=== PATIENT | female | born 1945 | race Caucasian/White ===

== ENCOUNTER 2018-09-27 10:38 | Inpatient (IN) | payer MEDICARE ==
[2018-09-27] MEDS ORDERED: ASPIRIN 81 MG PO STA (11:30)
[2018-09-27] MEDS ORDERED: NITROGLYCERIN OINT 1 INCH/GM PACKET TOPICAL STA (11:30)
[2018-09-27] MEDS ORDERED: LABETALOL SYRINGE 5 MG/ML IVP STA (11:31)
[2018-09-27 11:55] LABS: Basophils % (A) 1 %; Eosinophils # (A) 0.1 k/uL (0-0.7); Eosinophils % (A) 1 %; HCT 46.9 % (34.0-46.0); HGB 14.9 gm/dL (11.4-16.0); Lymphocytes # (A) 0.8 k/uL (1.0-4.8); Lymphocytes % (A) 13 %; MCH 29.6 pg (25.0-35.0); MCHC 31.9 g/dL (31.0-37.0); MCV 92.8 fL (80.0-100.0); Mean Platelet Volume 6.6; Monocytes # (A) 0.3 k/uL (0-1.0); Monocytes % (A) 5 %; Neutrophils # (A) 5.2 k/uL (1.3-7.7); Neutrophils % (A) 79 %; Platelet Count 302 k/uL (150-450); RBC 5.05 m/uL (3.80-5.40); RDW 13.5 % (11.5-15.5); WBC 6.6 k/uL (3.8-10.6)
--- NOTE | 2018-09-27 11:55 | ED ---
Chest Pain HPI - General Chief Complaint: Chest Pain Stated Complaint: chest pain Time Seen by Provider: 09/27/18 11:25 Source: patient Mode of arrival: ambulatory Limitations: no limitations - History of Present Illness Initial Comments: This 73-year-old white female presents with a complaint of some shortness of breath and chest pain which started this morning. She states that the pain throughout her chest as a heaviness that went down through her abdomen. She thinks that this may be related to an increase in her lisinopril. She is placed on senna pill 20 mg several weeks ago but her blood pressure still is elevated and then this past week she was started on lisinopril 30 mg instead. She denies any leg pain or swelling or history of DVT or PE. She denies any history of pulmonary problems or COPD. She does not smoke. She states that her last stress test was approximately 2 years ago and this was negative. She had a heart catheterization remotely and this was negative. She states that her blood pressure did not read on her home monitor this morning but her blood pressure is significantly elevated upon arrival. No other complaints or modifying factors. She later relates some increased indigestion and/or pain in the midepigastric region. She states that the last several weeks that she will have pain in this area every time that she eats. She still has her gallbladder in place but denies any known problems previously with her gallbladder or pancreas. - Related Data Home Medications Medication Instructions Recorded Confirmed Levothyroxine Sodium [Synthroid] 137 mcg PO DAILY 09/27/18 09/27/18 Lisinopril [Zestril] 10 mg PO HS 09/27/18 09/27/18 Lisinopril [Zestril] 20 mg PO HS 09/27/18 09/27/18 Metoprolol Succinate (ER) [Toprol 25 mg PO HS 09/27/18 09/27/18 Xl] Allergies Allergy/AdvReac Type Severity Reaction Status Date / Time ceftriaxone [From Rocephin] Allergy Itching Verified 09/27/18 11:09 Iodinated Contrast- Oral and Allergy Unknown Verified 09/27/18 11:09 IV Dye Review of Systems ROS Statement: Those systems with pertinent positive or pertinent negative responses have been documented in the HPI. ROS Other: All systems not noted in ROS Statement are negative. Past Medical History Past Medical History: Hypertension, Thyroid Disorder History of Any Multi-Drug Resistant Organisms: MRSA Date of last positivie culture/infection: 2015 MDRO Source:: eye Past Surgical History: Hernia Repair, Hysterectomy, Tonsillectomy Additional Past Surgical History / Comment(s): thyroid ablation Past Psychological History: No Psychological Hx Reported Smoking Status: Never smoker Past Alcohol Use History: None Reported Past Drug Use History: None Reported General Exam - General Exam Comments Initial Comments: GENERAL: The patient is well nourished and well hydrated. VITAL SIGNS: Heart rate, blood pressure, respiratory rate reviewed as recorded in nurse's notes. EYES: Pupils are round and reactive. Extraocular movements are intact. No conjunctival / lid redness or swelling. ENT: No external evidence of injury, swelling, or ecchymosis. Airway is patent. Throat is clear. NECK: Nontender. No swelling or evidence of injury. No subcutaneous emphysema. Trachea is midline. No thyroid mass. HEART: Regular rate and rhythm. Good peripheral pulses. LUNGS/CHEST: Breath sounds clear and equal bilaterally. No rales, rhonchi, or wheezes. No ecchymosis, subcutaneous emphysema, or tenderness. ABDOMEN: Mild tenderness noted in the midepigastric region. No palpable masses or organomegaly. No peritoneal signs. No abdominal wall swelling or ecchymosis. EXTREMITIES: No extremity tenderness. Normal muscle tone and function. No thoracolumbar tenderness. NEUROLOGIC: Sensation is grossly intact. Cranial nerve exam reveals face is symmetrical, tongue is midline, speech is clear. SKIN: No abrasions or ecchymosis is noted. No induration or masses noted. PSYCHIATRIC: Alert and oriented. Appropriate behavior and judgment. Limitations: no limitations Course Vital Signs 09/27/18 10:45 Temperature 97.9 F Pulse Rate 104 H Respiratory 18 Rate Blood Pressure 172/126 O2 Sat by Pulse 96 Oximetry Chest Pain MDM - MDM The patient was seen and examined. All diagnostics are reviewed. An IV is established and she received Nitropaste to the anterior chest wall as well as an aspirin and 10 mg of labetalol intravenously. Her blood pressure did decrease nicely. The patient later complained of increased pain in the midepigastric region. A GI cocktail as well as Protonix is ordered. She also had an EKG which does show a normal sinus rhythm at a rate of 95. There is multiple ST T-wave changes noted primarily into the lateral and inferior leads. There is no ST elevation. This felt that this could be related to her right bundle-branch block. The RI intervals 132, QRS duration is 124, and the QTC intervals 464. The chest x-ray does not show any acute processes. The lipase is mildly elevated consistent with possible mild pancreatitis. The d-dimer is elevated. A computed tomography angiogram of the chest cannot be ordered due to her contrast ALLERGY. An VQ scan will be ordered for tomorrow. The gallbladder ultrasound is later ordered and is pending. The patient is agreeable with admission. The case is discussed with Dr. Lundy and she is agreeable with admission with patient to have a cardiology consult, echocardiogram, V/Q scan, and be on a clear liquid diet. Disposition Clinical Impression: Chest pain, Dyspnea, Unstable angina, Hypertensive crisis, Elevated d-dimer, Abdominal pain, Pancreatitis Disposition: ADMITTED IP TO THIS HOSP Condition: Fair Is patient prescribed a controlled substance at d/c from ED?: No Time of Disposition: 13:47 Decision Date: 09/27/18 Decision Time: 13:47
[2018-09-27 12:08] LABS: ALT 32 U/L (9-52); AST 25 U/L (14-36); Albumin 4.4 g/dL (3.5-5.0); Alkaline Phosphatase 97 U/L (38-126); Amylase 51 U/L (30-110); Anion Gap 10 mmol/L; Blood Urea Nitrogen 21 mg/dL (7-17); Calcium 9.7 mg/dL (8.4-10.2); Carbon Dioxide 23 mmol/L (22-30); Chloride 106 mmol/L (98-107); Glucose 107 mg/dL (74-99); Lipase 467 U/L (23-300); Potassium 4.8 mmol/L (3.5-5.1); Sodium 139 mmol/L (137-145); Total Bilirubin 0.9 mg/dL (0.2-1.3); Total Protein 7.7 g/dL (6.3-8.2)
[2018-09-27 12:11] LABS: INR 0.9 (<1.2); Partial Thromboplastin Time 26.5 sec (22.0-30.0); Prothrombin Time 9.8 sec (9.0-12.0)
[2018-09-27 12:25] LABS: Creatine Kinase 72 U/L (30-135); D-Dimer 1.32 mg/L FEU (<0.60)
[2018-09-27 12:38] LABS: Creatine Kinase MB 0.6 ng/mL (0.0-2.4); Troponin I <0.012 ng/mL (0.000-0.034)
--- NOTE | 2018-09-27 12:51 | XR ---
EXAMINATION TYPE: XR chest 2V DATE OF EXAM: 09/27/2018 COMPARISON: None INDICATION: Chest pain, racing heart TECHNIQUE: Frontal and lateral views of the chest are obtained. FINDINGS: The heart size is borderline in size. The pulmonary vasculature is normal. The lungs are clear. There is elevation of the right diaphragm. IMPRESSION: 1. No acute pulmonary process.
[2018-09-27] MEDS ORDERED: MAG HYDROX/AL HYDROX/SIMETH 30 ML, HYOSCYAMINE ELIXIR 10 ML, CIMETIDINE HCL 300 MG, LID... PO STA ×4 (13:38)
[2018-09-27] MEDS ORDERED: HEPARIN SODIUM,PORCINE 5,000 UNIT/ML 1 ML VIAL IV PRN (13:47)
[2018-09-27] MEDS ORDERED: NITROGLYCERIN SL TABS 0.4 MG TAB SUBLINGUAL PRN (13:47)
[2018-09-27] MEDS ORDERED: HEPARIN SODIUM,PORCINE 5,000 UNIT/ML 1 ML VIAL IV ONE (13:47)
[2018-09-27] MEDS ORDERED: hydrALAZINE HCL 20 MG/ML 1 ML VIAL IVP STA (13:50)
[2018-09-27] MEDS ORDERED: HEPARIN SOD,PORK IN 0.45% NACL 25,000 UNIT in 0.45% NACL 1 250ML.BAG IV SCH (14:00)
[2018-09-27 15:30] LABS: Glucose,Whole Blood 108 mg/dL (75-99)
[2018-09-27] MEDS ORDERED: hydrOXYzine PAMOATE 25 MG CAP PO ONE (15:55)
[2018-09-27] MEDS ORDERED: ONDANSETRON 4 MG/2 ML VIAL IVP PRN (15:55)
[2018-09-27] MEDS ORDERED: MORPHINE SULFATE 2 MG/ML SYRINGE IVP PRN (15:56)
[2018-09-27] MEDS: PANTOPRAZOLE 40 MG/10 ML VIAL IVP SCH ×2 (16:36→22:30)
[2018-09-27 17:11] LABS: Creatine Kinase 65 U/L (30-135)
[2018-09-27 17:23] LABS: Troponin I <0.012 ng/mL (0.000-0.034)
[2018-09-27] MEDS: NITROGLYCERIN OINT 1 INCH/GM PACKET TOPICAL SCH (17:23)
[2018-09-27 17:50] LABS: Creatine Kinase MB 0.6 ng/mL (0.0-2.4)
--- NOTE | 2018-09-27 20:11 | NM ---
EXAMINATION TYPE: NM pul vent and perfuse DATE OF EXAM: 09/27/2018 COMPARISON: Same day chest x-ray. HISTORY: Chest pain and shortness of breath with elevated d-dimer TECHNIQUE: Utilizing inhalation of 66.1 mCi Tc 99m DTPA aerosol and intravenous injection of 3.2 mCi of Tc 99m MAA, ventilation and perfusion images are acquired post injection in multiple projections. FINDINGS: Low lung volumes are redemonstrated. Normal radiotracer distribution is noted in the lungs. There is no evidence of mismatched defects. IMPRESSION: Low probability for pulmonary embolism.
[2018-09-27] MEDS ORDERED: LISINOPRIL 20 MG TAB PO SCH (21:00)
[2018-09-27] MEDS ORDERED: LISINOPRIL 10 MG TAB PO SCH (21:00)
--- NOTE | 2018-09-27 21:11 | US ---
EXAMINATION TYPE: US gallbladder DATE OF EXAM: 09/27/2018 COMPARISON: NONE CLINICAL HISTORY: Pain. Pressure and nausea. EXAM MEASUREMENTS: Liver Length: 13.1 cm Gallbladder Wall: 0.2 cm CBD: 0.3 cm Right Kidney: 10.0 x 5.1 x 3.9 cm Pancreas: Obscured by bowel gas Liver: Increased attenuation Gallbladder: No stones seen Evidence for sonographic Connell's sign: No CBD: wnl Right Kidney: Cortical thinning hydronephrosis seen. Pancreas is suboptimally evaluated as this obscured by overlying bowel gas on the images saved. Visua lized liver is heterogeneously hyperechoic. No intrahepatic ductal dilatation is seen. Evaluation for focal masses is suboptimal due to the heterogeneity. Limited images right kidney show severe hydrone phrosis. Images of the gallbladder show no shadowing mobile gallstones. Distended margins are present . IMPRESSION: Suboptimal study with severe right-sided hydronephrosis noted. Further workup advised.
[2018-09-27] MEDS: ACETAMINOPHEN TAB 325 MG TAB PO PRN (22:12)
[2018-09-27] MEDS: METOPROLOL SUCCINATE (ER) 25 MG TAB.ER.24H PO SCH (22:13)
[2018-09-28 00:16] LABS: Creatine Kinase MB 0.6 ng/mL (0.0-2.4); Troponin I 0.013 ng/mL (0.000-0.034)
[2018-09-28 04:10] LABS: Cholesterol 267 mg/dL (<200); HDL Cholesterol 59 mg/dL (40-60); LDL Cholesterol,Calculated 187 mg/dL (0-99); Triglycerides 105 mg/dL (<150)
[2018-09-28] MEDS: ACETAMINOPHEN TAB 325 MG TAB PO PRN (06:28)
[2018-09-28] MEDS: LEVOTHYROXINE 137 MCG TAB PO SCH (06:29)
[2018-09-28] MEDS: NITROGLYCERIN OINT 1 INCH/GM PACKET TOPICAL SCH (06:30)
[2018-09-28] MEDS: PANTOPRAZOLE 40 MG/10 ML VIAL IVP SCH ×2 (08:05→23:06)
[2018-09-28] MEDS ORDERED: ASPIRIN 325 MG TAB PO SCH (09:00)
--- NOTE | 2018-09-28 10:22 | ECHOF ---
Referral Reason:cp MEASUREMENTS -------- HEIGHT: 162.6 cm WEIGHT: 83.5 kg BP: RVIDd: 2.6 cm (< 3.3) IVSd: 1.5 cm (0.6 - 1.1) LVIDd: 4.4 cm (3.9 - 5.3) LVPWd: 1.3 cm (0.6 - 1.1) IVSs: 1.8 cm LVIDs: 3.2 cm LVPWs: 1.6 cm Ao Diam: 2.8 cm (2.0 - 3.7) AV Cusp: 1.8 cm (1.5 - 2.6) LA Diam: 3.8 cm (2.7 - 3.8) MV EXCURSION: 15.271 mm (> 18.000) MV EF SLOPE: 82 mm/s (70 - 150) EPSS: 0.7 cm MV E Hosea: 0.35 m/s MV DecT: 224 ms MV A Hosea: 0.80 m/s MV E/A Ratio: 0.44 RAP: 5.00 mmHg RVSP: 14.38 mmHg FINDINGS -------- Sinus rhythm. This was a technically adequate study. The left ventricular size is normal. There is moderate concentric left ventricular hypertrophy. O verall left ventricular systolic function is normal with, an EF between 55 - 60 %. The right ventricle is normal in size. The left atrial size is normal. The right atrial size is normal. xx ml of Lumason was utilized for enhancement of images. There is mild aortic valve sclerosis. There is no evidence of aortic regurgitation. Mild mitral annular calcification present. Mild mitral regurgitation is present. Mild tricuspid regurgitation present. There is no evidence of pulmonary hypertension. The right v entricular systolic pressure, as measured by Doppler, is 14.38mmHg. There is no pulmonic regurgitation present. The aortic root size is normal. There is no pericardial effusion. CONCLUSIONS -------- 1. The left ventricular size is normal. 2. There is moderate concentric left ventricular hypertrophy. 3. Overall left ventricular systolic function is normal with, an EF between 55 - 60 %. 4. The right ventricle is normal in size. 5. The left atrial size is normal. 6. The right atrial size is normal. 7. xx ml of Lumason was utilized for enhancement of images. 8. There is mild aortic valve sclerosis. 9. Mild mitral annular calcification present. 10. Mild mitral regurgitation is present. 11. Mild tricuspid regurgitation present. 12. There is no evidence of pulmonary hypertension. 13. The right ventricular systolic pressure, as measured by Doppler, is 14.38mmHg. 14. There is no pulmonic regurgitation present. 15. The aortic root size is normal. 16. There is no pericardial effusion. [employer]ATE[employer]: Michelle Whipple RDCS
[2018-09-28] MEDS ORDERED: CAFFEINE CITRATE 60 MG/3 ML VIAL IV PRN (11:18)
[2018-09-28] MEDS ORDERED: REGADENOSON 0.4 MG/5 ML SYRINGE IV ONE (11:18)
[2018-09-28] MEDS ORDERED: DOBUTamine DRIP for NUC MED 500 MG in DEXTROSE/WATER 1 250ML.BAG IV ONE (11:32)
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
[2018-09-28] MEDS: ATORVASTATIN 80 MG TAB PO SCH (12:11)
[2018-09-28] MEDS: HYDROCHLOROTHIAZIDE 25 MG TAB PO SCH (12:11)
[2018-09-28] MEDS ORDERED: diphenhydrAMINE 50 MG/ML 1 ML VIAL IVP ONE (13:02)
[2018-09-28] MEDS ORDERED: methylPREDNISolone SOD SUCCI 125 MG/2 ML VIAL IV ONE (13:02)
[2018-09-28] MEDS ORDERED: FAMOTIDINE 20 MG/2 ML VIAL IV ONE (13:02)
--- NOTE | 2018-09-28 14:23 | P.HPIM ---
History of Present Illness H&P Date: 09/28/18 This is a 73-year-old female patient of Dr. Leyva and follows with Jacklyn RAMACHANDRAN in the office with past medical history of hypertension, hypothyroidism. She was recently seen by Jacklyn RAMACHANDRAN and her lisinopril dose was increased. She states she has had increased stress as she is taking care of her at home which he is paralyzed and she is getting to the point where he needs to be placed. Patient is complaining of abdominal pain is worsening after she eats fatty foods is going on for one year. She states she has modified her diet with some improvement. She denies having any nausea but had episode of vomiting. She denies any blood in her stools, no fever. She is complaining of some pressure in her mid back area and also discomfort from the mid chest down into her abdomen. She states she Takes Pepto-Bismol. Her last colonoscopy was [address] Wilson and she has subsequently done a cold guard that was negative. She denies any black stools. She now denies any chest pain or abdominal pain. Patient came into [facility] emergency center for evaluation. She was afebrile, heart rate 100, initial blood pressure 172/126, pulse ox 96% on room air. Chest x-ray on arrival here did not reveal any acute pulmonary process. Ultrasound of the gallbladder was performed which revealed suboptimal study with severe right-sided hydronephrosis noted. The patient is known to have bilateral renal cyst. Echocardiogram with Doppler study was performed which revealed a normal left ventricular systolic function. EKG shows normal sinus rhythm with a right bundle branch block pattern and nonspecific ST-T wave changes. White blood cell count 6.6, hemoglobin 14.9, platelet count 302. D- dimer 1.3, sodium 139, potassium 4.8, BUN 21 and creatinine 0.6. Troponin 0.012 , 0.012, 0.013. Cholesterol 267, LDL 187, HDL 59 and triglycerides 105. Lipase 467. Amylase is normal. Patient was started on aspirin, heparin drip. She was given IV hydralazine, IV labetalol and one dose of Solu-Medrol and admitted to the cardiac stepdown unit and cardiology consult was requested. Patient states she has hyperlipidemia and was placed on Lipitor for years ago but was unable to tolerate it due to muscle soreness. Review of Systems All systems: negative Constitutional: Reports fatigue, Denies chills, Denies fever, Denies lethargy, Denies malaise, Denies weakness, Denies weight loss Eyes: denies blurred vision, denies pain Ears, nose, mouth and throat: Denies dysphagia, Denies headache, Denies sore throat, Denies vertigo Cardiovascular: Reports chest pain, Denies decreased exercise tolerance, Denies dyspnea on exertion, Denies edema, Denies lightheadedness, Denies palpitations, Denies shortness of breath, Denies syncope Respiratory: Denies cough, Denies cough with sputum, Denies dyspnea, Denies excessive sputum, Denies hemoptysis, Denies home oxygen, Denies wheezing Gastrointestinal: Reports abdominal pain, Reports loss of appetite, Reports nausea, Reports vomiting, Denies diarrhea Genitourinary: Denies dysuria, Denies hematuria, Denies urgency, Denies urinary frequency Musculoskeletal: Denies frequent falls, Denies gait dysfunction, Denies muscle weakness, Denies myalgias Integumentary: Denies pruritus, Denies rash, Denies wounds Neurological: Denies aphasia, Denies change in mentation, Denies confusion, Denies gait dysfunction, Denies numbness, Denies seizures, Denies weakness Psychiatric: Denies anxiety, Denies depression Endocrine: Denies fatigue, Denies weight change 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, past endometreosis, cysts on kidneys, basal cell skin cancer, shingles 2016 or 2017, "has a piece of wood stuck in lt thumb" History of Any Multi-Drug Resistant Organisms: MRSA Date of last positivie culture/infection: 2015 MDRO Source:: lt eye Past Surgical History: Heart Catheterization, Hernia Repair, Hysterectomy, Joint Replacement, Tonsillectomy Additional Past Surgical History / Comment(s): thyroid ablation, cataracts-melissa lens implants, rt knee replacement Past Anesthesia/Blood Transfusion Reactions: No Reported Reaction Additional Past Anesthesia/Blood Transfusion Reaction / Comment(s): CLAUSTERPHOBIA Smoking Status: Never smoker Additional Past Alcohol Use History / Comment(s): Patient has been a lifelong nonsmoker. She denies any marijuana, street drug or alcohol use. - Past Family History Mother Additional Family Medical History / Comment(s): Mother from sepsis from rupture of colon cancer Father Additional Family Medical History / Comment(s): age 95- hx of parkinsons Brother(s) Additional Family Medical History / Comment(s): Patient has 1 sister and 1 brother that both have aortic aneurysm. Daughter(s) Additional Family Medical History / Comment(s): Patient has one daughter with chronic back problems. Medications and Allergies Home Medications Medication Instructions Recorded Confirmed Type Levothyroxine Sodium [Synthroid] 137 mcg PO DAILY 09/27/18 09/27/18 History Lisinopril [Zestril] 10 mg PO HS 09/27/18 09/27/18 History Lisinopril [Zestril] 20 mg PO HS 09/27/18 09/27/18 History Metoprolol Succinate (ER) [Toprol 25 mg PO HS 09/27/18 09/27/18 History Xl] Allergies Allergy/AdvReac Type Severity Reaction Status Date / Time ceftriaxone [From Rocephin] Allergy Itching Verified 09/27/18 11:09 Iodinated Contrast- Oral and Allergy Unknown Verified 09/27/18 11:09 IV Dye Physical Exam Vitals: Vital Signs Temp Pulse Pulse Resp BP BP Pulse Ox 09/28/18 08:00 97.4 F L 75 20 166/81 92 L 09/28/18 04:00 98.1 F 84 20 146/79 94 L 09/28/18 00:00 98.0 F 108 H 20 162/84 94 L 09/27/18 20:00 98.1 F 91 20 146/82 94 L 09/27/18 15:05 97.8 F 109 H 160/97 95 09/27/18 14:30 108 H 23 149/86 96 09/27/18 14:00 101 H 18 125/67 95 09/27/18 13:30 21 143/95 09/27/18 13:00 92 20 150/90 09/27/18 12:30 93 18 147/96 94 L 09/27/18 12:00 89 19 177/119 95 Intake and Output 09/27/18 09/28/18 09/28/18 22:59 06:59 14:59 Intake Total 0 Balance 0 Intake: Oral 0 Other: Voiding Method Toilet Toilet # Voids 1 Weight 84.5 kg Gen: This is a 73-year-old female. She is sitting on the edge of the bed appears to be comfortable and in no acute distress. HEENT: Head is atraumatic, normocephalic. Pupils equal, round. Sclerae is anicteric. NECK: Supple. No JVD. No lymphadenopathy. No thyromegaly. LUNGS: Clear to auscultation. No wheezes or rhonchi. No intercostal retractions. HEART: Regular rate and rhythm. No murmur. ABDOMEN: Soft. Bowel sounds are present. No masses. No tenderness. EXTREMITIES: No pedal edema. No calf tenderness. Dorsalis pedis +2 bilaterally. NEUROLOGICAL: Patient is awake, alert and oriented x3. Cranial nerves 2 through 12 are grossly intact. Results CBC & Chem 7: 09/27/18 11:09/27/18 11: Labs: Abnormal Lab Results - Last 24 Hours (Table) 09/27/18 09/27/18 09/27/18 Range/Units 11: 11: 11: Hct 46.9 H (34.0-46.0) % Lymphocytes # 0.8 L (1.0-4.8) k/uL APTT (22.0-30.0) sec D-Dimer 1.32 H (<0.60) mg/L FEU BUN 21 H (7-17) mg/dL Glucose 107 H (74-99) mg/dL POC Glucose (mg/dL) (75-99) mg/dL Cholesterol (<200) mg/dL LDL Cholesterol, Calc (0-99) mg/dL Lipase 467 H (23-300) U/L 09/27/18 09/27/18 09/27/18 Range/Units 11: 15:10 23:44 Hct (34.0-46.0) % Lymphocytes # (1.0-4.8) k/uL APTT 49.7 H (22.0-30.0) sec D-Dimer (<0.60) mg/L FEU BUN (7-17) mg/dL Glucose (74-99) mg/dL POC Glucose (mg/dL) 108 H (75-99) mg/dL Cholesterol 267 H (<200) mg/dL LDL Cholesterol, Calc 187 H (0-99) mg/dL Lipase (23-300) U/L Thrombosis Risk Factor Assmnt - DVT/VTE Prophylaxis DVT/VTE Prophylaxis: Pharmacologic Prophylaxis ordered Assessment and Plan Plan: 1. Abdominal pain/chest pain with abdominal bloating and chronic abdominal discomfort with fatty foods. Cardiology consult appreciated. Dobutamine echocardiogram ordered for tomorrow. Cardiology has added Lipitor and continue baby aspirin. 2. Pancreatitis and suspected acute cholecystitis. Consult with Dr. Wilson. Recheck lipase in the morning. 3. Incidental finding of right hydronephrosis. Consult with Dr Gimenez and CAT scan of the abdomen and pelvis with contrast ordered. 4. Elevated d-dimer. PE was ruled out on VQ scan. 5. Hypertension presenting with emergent hypertension requiring IV medication. Continue hydrochlorothiazide 25 mg daily, lisinopril changed to 20 mg daily, Toprol-XL 25 mg at bedtime. 6. Hypothyroidism. Continue levothyroxine 137 g daily 7. Hyperlipidemia with possible history of familial hyperlipidemia. Patient started on Lipitor. 8. GI prophylaxis. Protonix. 9. DVT prophylaxis. CURTIS hose. Patient will be admitted to the hospital for a minimum of 2 night stay. Discharge plan: Discharge home. Consult with social work for home situation evaluation and assistance. Impression and plan of care have been directed as dictated by the signing physician. Kalyn Vinson nurse practitioner acting as scribe for signing physician.
--- NOTE | 2018-09-28 15:56 | P.GSCN ---
History of Present Illness Consult date: 09/28/18 Reason for Consult: Abdominal pain History of present illness: Patient presents to the hospital complaining of shortness of breath as well as abdominal pressure and chest pain. Pressure sensation in the mid chest with some left shoulder discomfort at times. Patient undergoing cardiac workup currently. Pulmonary perfusion scan negative. Patient describes a several month history of right upper quadrant discomfort. Pain does seem to be increased with fatty foods. She describes bloating with increased flatulence and belching. Normal bowel habits. Last colonoscopy 5 years ago. Recent cologuard negative. Patient is not had an upper endoscopy. She has good relief of many of her symptoms with Pepto-Bismol. Patient had an ultrasound the abdomen showing right-sided hydronephrosis. Gallbladder otherwise looks normal. Lipase was elevated however amylase and liver enzymes normal. Patient describes chronic hematuria. History of kidney stones once in the past. Patient is a history of known renal cyst. Review of Systems The patient denies any acute changes in vision or hearing, no dysphagia or odynophagia, no dysuria, no headache, no runny nose, no rectal bleeding or melena, no unexplained weight loss 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, past endometreosis, cysts on kidneys, basal cell skin cancer, shingles 2016 or 2017, "has a piece of wood stuck in lt thumb" History of Any Multi-Drug Resistant Organisms: MRSA Year Discovered:: 2016 MDRO Source:: lt eye Past Surgical History: Heart Catheterization, Hernia Repair, Hysterectomy, Joint Replacement, Tonsillectomy Additional Past Surgical History / Comment(s): thyroid ablation, cataracts-melissa lens implants, rt knee replacement Past Anesthesia/Blood Transfusion Reactions: No Reported Reaction Additional Past Anesthesia/Blood Transfusion Reaction / Comm: CLAUSTERPHOBIA Smoking Status: Never smoker Additional Past Alcohol Use History / Comment(s): Patient has been a lifelong nonsmoker. She denies any marijuana, street drug or alcohol use. - Past Family History Mother Additional Family Medical History / Comment(s): Mother from sepsis from rupture of colon cancer Father Additional Family Medical History / Comment(s): age 95- hx of parkinsons Brother(s) Additional Family Medical History / Comment(s): Patient has 1 sister and 1 brother that both have aortic aneurysm. Daughter(s) Additional Family Medical History / Comment(s): Patient has one daughter with chronic back problems. Medications and Allergies Home Medications Medication Instructions Recorded Confirmed Type Levothyroxine Sodium [Synthroid] 137 mcg PO DAILY 09/27/18 09/27/18 History Lisinopril [Zestril] 10 mg PO HS 09/27/18 09/27/18 History Lisinopril [Zestril] 20 mg PO HS 09/27/18 09/27/18 History Metoprolol Succinate (ER) [Toprol 25 mg PO HS 09/27/18 09/27/18 History Xl] Allergies Allergy/AdvReac Type Severity Reaction Status Date / Time ceftriaxone [From Rocephin] Allergy Itching Verified 09/27/18 11:09 Iodinated Contrast- Oral and Allergy Unknown Verified 09/27/18 11:09 IV Dye Surgical - Exam Vital Signs Temp Pulse Resp BP Pulse Ox 97.9 F 104 H 18 172/126 96 09/27/18 10:45 09/27/18 10:45 09/27/18 10:45 09/27/18 10:45 09/27/18 10:45 Physical exam: General: Well-developed, well-nourished HEENT: Normocephalic, sclerae nonicteric Abdomen: Mild right upper quadrant tenderness, nondistended Extremities: No edema Neuro: Alert and oriented Results - Labs 09/27/18 11:22 09/27/18 11:22 Abnormal Lab Results - Last 24 Hours (Table) 09/27/18 09/27/18 Range/Units 11:22 23:44 APTT 49.7 H (22.0-30.0) sec Cholesterol 267 H (<200) mg/dL LDL Cholesterol, Calc 187 H (0-99) mg/dL Diabetes panel 09/27/18 Range/Units 11:22 Triglycerides 105 (<150) mg/dL HDL Cholesterol 59 (40-60) mg/dL Assessment and Plan (1) Abdominal pain Narrative/Plan: Clinically doubt choledocholithiasis at this time given the normal liver enzymes in the normal ultrasound of the gallbladder. Will await HIDA scan findings. Also await stress test already ordered. We'll follow closely with you. Current Visit: Yes Status: Acute Code(s): R10.9 - UNSPECIFIED ABDOMINAL PAIN SNOMED Code(s): 94604225
[2018-09-28] MEDS: BARIUM SULFATE 450 ML ORAL.SUSP BOTTLE PO PRN ×2 (17:40→20:19)
--- NOTE | 2018-09-28 21:38 | P.GSCN ---
History of Present Illness Consult date: 09/28/18 Reason for Consult: Right hydronephrosis Requesting physician: Kalyn Vinson History of present illness: The patient is a 73-year-old white female admitted with right-sided abdominal and lower back discomfort, as well as chest discomfort. The renal ultrasound showed evidence of severe right hydronephrosis, so I'm consulted for this reason. The patient reports right lower back discomfort. She denies gross hematuria, but states that she has a history of chronic microhematuria. She was evaluated by a stage setting painter apprentice for to 5 years ago, and was told that she had renal cysts. She presumably had no hydronephrosis at that time. She passed a kidney stone 20-30 years ago. She has been treated for in frequent UTIs. Review of Systems - Constitutional Reports chills - Gastrointestinal Reports indigestion, Reports nausea, Denies constipation, Denies diarrhea, Denies vomiting - Genitourinary Genitourinary: Reports flank pain, Denies dysuria, Denies hematuria 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, past endometreosis, cysts on kidneys, basal cell skin cancer, shingles 2016 or 2017, "has a piece of wood stuck in lt thumb" History of Any Multi-Drug Resistant Organisms: MRSA Year Discovered:: 2016 MDRO Source:: lt eye Past Surgical History: Heart Catheterization, Hernia Repair, Hysterectomy, Joint Replacement, Tonsillectomy Additional Past Surgical History / Comment(s): thyroid ablation, cataracts-melissa lens implants, rt knee replacement Past Anesthesia/Blood Transfusion Reactions: No Reported Reaction Additional Past Anesthesia/Blood Transfusion Reaction / Comm: CLAUSTERPHOBIA Smoking Status: Never smoker Additional Past Alcohol Use History / Comment(s): Patient has been a lifelong nonsmoker. She denies any marijuana, street drug or alcohol use. - Past Family History Mother Additional Family Medical History / Comment(s): Mother from sepsis from rupture of colon cancer Father Additional Family Medical History / Comment(s): age 95- hx of parkinsons Brother(s) Additional Family Medical History / Comment(s): Patient has 1 sister and 1 brother that both have aortic aneurysm. Daughter(s) Additional Family Medical History / Comment(s): Patient has one daughter with chronic back problems. Medications and Allergies Home Medications Medication Instructions Recorded Confirmed Type Levothyroxine Sodium [Synthroid] 137 mcg PO DAILY 09/27/18 09/27/18 History Lisinopril [Zestril] 10 mg PO HS 09/27/18 09/27/18 History Lisinopril [Zestril] 20 mg PO HS 09/27/18 09/27/18 History Metoprolol Succinate (ER) [Toprol 25 mg PO HS 09/27/18 09/27/18 History Xl] Allergies Allergy/AdvReac Type Severity Reaction Status Date / Time ceftriaxone [From Rocephin] Allergy Itching Verified 09/27/18 11:09 Iodinated Contrast- Oral and Allergy Unknown Verified 09/27/18 11:09 IV Dye Surgical - Exam Vital Signs Temp Pulse Resp BP Pulse Ox 97.9 F 104 H 18 172/126 96 09/27/18 10:45 09/27/18 10:45 09/27/18 10:45 09/27/18 10:45 09/27/18 10:45 - General well developed, well nourished, no distress - Neck no masses, trachea midline - Respiratory normal respiratory effort - Abdomen Abdomen: soft, non tender, no guarding, no rigid, no rebound - Psychiatric oriented to time, oriented to person, oriented to place, speech is normal, memory intact Results - Labs 09/27/18 11:22 09/27/18 11:22 Abnormal Lab Results - Last 24 Hours (Table) 09/27/18 09/27/18 Range/Units 11:22 23:44 APTT 49.7 H (22.0-30.0) sec Cholesterol 267 H (<200) mg/dL LDL Cholesterol, Calc 187 H (0-99) mg/dL Diabetes panel 09/27/18 Range/Units 11:22 Triglycerides 105 (<150) mg/dL HDL Cholesterol 59 (40-60) mg/dL - Imaging US - kidney/bladder: report reviewed, image reviewed Assessment and Plan (1) Hydronephrosis Current Visit: Yes Status: Acute Code(s): N13.30 - UNSPECIFIED HYDRONEPHROSIS SNOMED Code(s): 80754310 Plan: The patient is a 73-year-old white female admitted with chest pain, abdominal pain, and nausea. She reports right lower back discomfort, and ultrasound shows evidence of moderate to severe right hydronephrosis. A computed tomography scan of the abdomen and pelvis will be obtained for further evaluation. Time with Patient: Greater than 30
--- NOTE | 2018-09-28 22:02 | CT ---
EXAMINATION TYPE: CT abdomen pelvis w con DATE OF EXAM: 09/28/2018 COMPARISON: None HISTORY: hydronephrosis CT DLP: 888.9 mGycm Automated exposure control for dose reduction was used. TECHNIQUE: Helical acquisition of images was performed from the lung bases through the pelvis. CONTRAST: Performed with Oral Contrast and with IV Contrast, patient injected with 100 mL of Isovue 3 00. FINDINGS: LUNG BASES: No significant abnormality is appreciated. LIVER/GB: No significant abnormality is appreciated. PANCREAS: No significant abnormality is seen. SPLEEN: No significant abnormality is seen. ADRENALS: No significant abnormality is seen. KIDNEYS AND URETERS AND URINARY BLADDER: There is no hydronephrosis or hydroureter. There are innumer able parapelvic cysts bilaterally. There are symmetric nephrograms. Symmetric urogram phase and contr ast enhancement. No renal calcifications. PERITONEAL CAVITY: No abnormal fluid or gas collections. RETROPERITONEAL ADENOPATHY: None visualized REPRODUCTIVE ORGANS: No significant abnormality is seen PELVIC ADENOPATHY: None visualized. OSSEOUS STRUCTURES: No significant abnormality is seen. BOWEL: No acute findings. Colonic diverticula are numerous. OTHER: No acute vascular findings. IMPRESSION: NO ACUTE PROCESS.
[2018-09-28] MEDS: METOPROLOL SUCCINATE (ER) 25 MG TAB.ER.24H PO SCH ×2 (23:06→23:10)
[2018-09-28] MEDS: LISINOPRIL 20 MG TAB PO SCH (23:06)
[2018-09-29 05:52] LABS: HCT 41.6 % (34.0-46.0); HGB 13.5 gm/dL (11.4-16.0); MCH 30.4 pg (25.0-35.0); MCHC 32.5 g/dL (31.0-37.0); MCV 93.5 fL (80.0-100.0); Mean Platelet Volume 6.7; Platelet Count 294 k/uL (150-450); RBC 4.45 m/uL (3.80-5.40); RDW 13.4 % (11.5-15.5); WBC 8.4 k/uL (3.8-10.6)
[2018-09-29 06:04] LABS: ALT 30 U/L (9-52); AST 21 U/L (14-36); Albumin 3.6 g/dL (3.5-5.0); Alkaline Phosphatase 85 U/L (38-126); Anion Gap 8 mmol/L; Blood Urea Nitrogen 12 mg/dL (7-17); Calcium 9.3 mg/dL (8.4-10.2); Carbon Dioxide 24 mmol/L (22-30); Chloride 105 mmol/L (98-107); Glucose 107 mg/dL (74-99); Lipase 146 U/L (23-300); Potassium 4.4 mmol/L (3.5-5.1); Sodium 137 mmol/L (137-145); Total Bilirubin 0.8 mg/dL (0.2-1.3); Total Protein 6.6 g/dL (6.3-8.2)
[2018-09-29] MEDS: LEVOTHYROXINE 137 MCG TAB PO SCH (06:49)
[2018-09-29 08:09] VITALS: RESP 16; TEMP 98.5
[2018-09-29] MEDS ORDERED: ASPIRIN 81 MG PO SCH (09:00)
--- NOTE | 2018-09-29 12:46 | ECHOS ---
STRESS ECHOCARDIOGRAM INDICATIONS: Chest pain. MEDICATIONS: Lisinopril, Levothyroxine, metoprolol. BASELINE HEART RATE: 81 BASELINE BLOOD PRESSURE: 166/105 MAXIMUM HEART RATE: 139 MAXIMUM BLOOD PRESSURE: 212/90 85% MPHR: 124 100% MPHR: 146 MAXIMUM STAGE REACHED: 2 TOTAL EXERCISE TIME: 4:50 CLINICAL INFORMATION: Baseline EKG shows sinus rhythm, nonspecific ST-T wave changes. Patient was given intravenous dobutamine over a period of 4 minutes and 50 seconds achieving 95% of predicted maximal heart rate without chest pain. There was worsening of the baseline ST-T wave changes noted. CONCLUSION: 1. Inconclusive EKG part of the stress test due to baseline EKG abnormalities. 2. Negative dobutamine echo. MMODL / IJN: [id number] /
--- NOTE | 2018-09-29 13:09 | P.PN ---
Progress Note - Text Progress Note Date: 09/29/18 Patient not in room during my rounds today. Await HIDA scan.
--- NOTE | 2018-09-29 13:33 | NM ---
EXAMINATION TYPE: NM hepatobiliary w EF DATE OF EXAM: 09/29/2018 COMPARISON: NONE HISTORY: biliary colic TECHNIQUE: After the intravenous administration of 5.16 mCi Tc 99m Mebrofenin hepatobiliary scintigra phy is performed. Immediate images post injection. FINDINGS: There is satisfactory initial accumulation of tracer by the liver. The gallbladder is visualized wit hin 26 minutes. The small bowel activity is noted within 10 minutes. At one hour 8 ounces of oral e nsure plus is given to mimic CCK and gallbladder ejection fraction is calculated at 84 %. IMPRESSION: Increased gallbladder ejection fraction may reflect hypercontractile state. Correlate cli nically.
[2018-09-29] MEDS: PANTOPRAZOLE 40 MG/10 ML VIAL IVP SCH (14:23)
[2018-09-29] MEDS: HYDROCHLOROTHIAZIDE 25 MG TAB PO SCH (14:23)
[2018-09-29] MEDS: LISINOPRIL 20 MG TAB PO SCH (14:23)
[2018-09-29] MEDS: ATORVASTATIN 80 MG TAB PO SCH (14:26)
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
[2018-09-29 14:39] VITALS: BP 139/89; PULSE 71
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
== END 2018-09-29 17:23 | disposition home or self-care (01) | DRG 439 ==
LOC: EC 10:38 → 3SCARD 13:47
PROVIDERS: ADMIT Family Medicine; ATTEND Family Medicine
DX: K85.90 Acute pancreatitis without necrosis or infection, unspecified (principal); K81.0 Acute cholecystitis; I16.9 Hypertensive crisis, unspecified; N28.1 Cyst of kidney, acquired; I45.10 Unspecified right bundle-branch block; R31.9 Hematuria, unspecified; E03.9 Hypothyroidism, unspecified; I10 Essential (primary) hypertension; R79.1 Abnormal coagulation profile; M19.90 Unspecified osteoarthritis, unspecified site; E78.49 Other hyperlipidemia; F40.240 Claustrophobia; F43.9 Reaction to severe stress, unspecified; Z79.890 Hormone replacement therapy; Z79.899 Other long term (current) drug therapy; Z96.651 Presence of right artificial knee joint; Z90.710 Acquired absence of both cervix and uterus; Z87.891 Personal history of nicotine dependence; Z87.440 Personal history of urinary (tract) infections; Z87.442 Personal history of urinary calculi; Z85.828 Personal history of other malignant neoplasm of skin; Z91.041 Radiographic dye allergy status; Z88.1 Allergy status to other antibiotic agents; Z86.14 Personal history of Methicillin resistant Staphylococcus aureus infection; Z96.1 Presence of intraocular lens; Z98.42 Cataract extraction status, left eye; Z98.41 Cataract extraction status, right eye; Z80.0 Family history of malignant neoplasm of digestive organs; Z82.0 Family history of epilepsy and other diseases of the nervous system
CPT/HCPCS: 36415; 71046; 74177; 76705; 78226; 78582; 80053; 80061; 80320; 82150; 82550; 82553; 83690; 83735; 83880; 84484; 85025; 85027; 85379; 85610; 85730; 93005; 93306; 93351; 96365; 96375; 96376; 99285

== ENCOUNTER 2018-12-21 19:36 | Emergency (ER) | payer MEDICARE ==
--- NOTE | 2018-12-21 20:37 | ED ---
SOB HPI - General Chief Complaint: Shortness of Breath Stated Complaint: possible pneumonia Time Seen by Provider: 12/21/18 20:17 Source: patient, RN notes reviewed, old records reviewed Mode of arrival: ambulatory - History of Present Illness Initial Comments: This is a 73-year-old female the ER with shortness of breath. Patient shortness breath and weakness. Recently prescribed a Z-Edgar which she did taking no improvement. No fever cough congestion or recent travel history. Patient denies chest pain. She has had persistent shortness of breath with cough. No fevers. Again symptoms 2 weeks. MD Complaint: shortness of breath, cough -: week(s) (2) Severity: mild Severity scale (1-10): 3 Consistency: constant Improves With: rest Worsens With: exertion Context: recent URI Associated Symptoms: cough, sputum production Treatments Prior to Arrival: none - Related Data Home Medications Medication Instructions Recorded Confirmed Levothyroxine Sodium [Synthroid] 137 mcg PO DAILY 09/27/18 12/21/18 Metoprolol Succinate (ER) [Toprol 25 mg PO HS 09/27/18 12/21/18 XL] Hydrochlorothiazide [Hydrodiuril] 25 mg PO MOWEFR 12/21/18 12/21/18 Lisinopril [Zestril] 20 mg PO DAILY 12/21/18 12/21/18 Allergies Allergy/AdvReac Type Severity Reaction Status Date / Time ceftriaxone [From Rocephin] Allergy Itching Verified 12/21/18 20:14 hydralazine Allergy Unknown Verified 12/21/18 20:14 Iodinated Contrast- Oral and Allergy Unknown Verified 12/21/18 20:14 IV Dye shellfish derived [Shrimp] Allergy Anaphylaxis Verified 12/21/18 20:43 Review of Systems ROS Statement: Those systems with pertinent positive or pertinent negative responses have been documented in the HPI. ROS Other: All systems not noted in ROS Statement are negative. 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, past endometreosis, cysts on kidneys, basal cell skin cancer, shingles 2016 or 2017, "has a piece of wood stuck in lt thumb" History of Any Multi-Drug Resistant Organisms: MRSA Date of last positivie culture/infection: 2016 MDRO Source:: lt eye Past Surgical History: Heart Catheterization, Hernia Repair, Hysterectomy, Joint Replacement, Tonsillectomy Additional Past Surgical History / Comment(s): thyroid ablation, cataracts-melissa lens implants, rt knee replacement Past Anesthesia/Blood Transfusion Reactions: No Reported Reaction Additional Past Anesthesia/Blood Transfusion Reaction / Comment(s): CLAUSTERPHOBIA Past Psychological History: No Psychological Hx Reported Smoking Status: Never smoker Past Alcohol Use History: None Reported Past Drug Use History: None Reported - Past Family History Mother Additional Family Medical History / Comment(s): Mother from sepsis from rupture of colon cancer Father Additional Family Medical History / Comment(s): age 95- hx of parkinsons Brother(s) Additional Family Medical History / Comment(s): Patient has 1 sister and 1 brother that both have aortic aneurysm. Daughter(s) Additional Family Medical History / Comment(s): Patient has one daughter with chronic back problems. General Exam General appearance: alert, in no apparent distress Head exam: Present: atraumatic, normocephalic, normal inspection Eye exam: Present: normal appearance, PERRL, EOMI. Absent: scleral icterus, conjunctival injection, periorbital swelling ENT exam: Present: normal exam, mucous membranes moist Neck exam: Present: normal inspection. Absent: tenderness, meningismus, lymphadenopathy Respiratory exam: Present: normal lung sounds bilaterally. Absent: respiratory distress, wheezes, rales, rhonchi, stridor Cardiovascular Exam: Present: regular rate, normal rhythm, normal heart sounds. Absent: systolic murmur, diastolic murmur, rubs, gallop, clicks GI/Abdominal exam: Present: soft, normal bowel sounds. Absent: distended, tenderness, guarding, rebound, rigid Extremities exam: Present: normal inspection, full ROM, normal capillary refill. Absent: tenderness, pedal edema, joint swelling, calf tenderness Back exam: Present: normal inspection Neurological exam: Present: alert, oriented X3, CN II-XII intact Psychiatric exam: Present: normal affect, normal mood Skin exam: Present: warm, dry, intact, normal color. Absent: rash Course Vital Signs 12/21/18 12/21/18 12/21/18 20:09 20:57 21:28 Temperature 97.9 F Pulse Rate 81 84 82 Respiratory 16 18 Rate Blood Pressure 192/112 173/85 O2 Sat by Pulse 97 98 Oximetry 12/21/18 12/21/18 12/22/18 21:52 22:51 00:15 Temperature Pulse Rate 82 81 89 Respiratory 16 16 16 Rate Blood Pressure 189/107 162/80 180/104 O2 Sat by Pulse 95 96 97 Oximetry - Reevaluation(s) Reevaluation #1: 12/21/18 23:38 Medical record is reviewed Reevaluation #2: 12/21/18 23:38 Patient does still have shortness of breath Medical Decision Making - Medical Decision Making 73 female the ER for evaluation. Patient presents today for evaluation regarding shortness of breath with cough. No improvement despite Z-Edgar, here x- ray labwork are normal. - Lab Data Result diagrams: 12/21/18 21:42 12/21/18 21:42 Lab Results 12/21/18 12/21/18 12/21/18 Range/Units 21:42 21:42 21:42 WBC 11.2 H (3.8-10.6) k/uL RBC 4.72 (3.80-5.40) m/uL Hgb 14.2 (11.4-16.0) gm/dL Hct 43.2 (34.0-46.0) % MCV 91.6 (80.0-100.0) fL MCH 30.1 (25.0-35.0) pg MCHC 32.9 (31.0-37.0) g/dL RDW 14.1 (11.5-15.5) % Plt Count 402 (150-450) k/uL Neutrophils % 76 % Lymphocytes % 16 % Monocytes % 4 % Eosinophils % 2 % Basophils % 0 % Neutrophils # 8.5 H (1.3-7.7) k/uL Lymphocytes # 1.8 (1.0-4.8) k/uL Monocytes # 0.4 (0-1.0) k/uL Eosinophils # 0.2 (0-0.7) k/uL Basophils # 0.0 (0-0.2) k/uL PT (9.0-12.0) sec INR (<1.2) APTT (22.0-30.0) sec Sodium 139 (137-145) mmol/L Potassium 4.5 (3.5-5.1) mmol/L Chloride 104 (98-107) mmol/L Carbon Dioxide 26 (22-30) mmol/L Anion Gap 9 mmol/L BUN 16 (7-17) mg/dL Creatinine 0.68 (0.52-1.04) mg/dL Est GFR (CKD-EPI)AfAm >90 (>60 ml/min/1.73 sqM) Est GFR (CKD-EPI)NonAf 86 (>60 ml/min/1.73 sqM) Glucose 100 H (74-99) mg/dL Calcium 9.7 (8.4-10.2) mg/dL Magnesium 2.2 (1.6-2.3) mg/dL Total Bilirubin 0.7 (0.2-1.3) mg/dL AST 22 (14-36) U/L ALT 26 (9-52) U/L Alkaline Phosphatase 125 (38-126) U/L Troponin I (0.000-0.034) ng/mL NT-Pro-B Natriuret Pep 256 pg/mL Total Protein 7.8 (6.3-8.2) g/dL Albumin 4.5 (3.5-5.0) g/dL 12/21/18 12/21/18 Range/Units 21:42 21:42 WBC (3.8-10.6) k/uL RBC (3.80-5.40) m/uL Hgb (11.4-16.0) gm/dL Hct (34.0-46.0) % MCV (80.0-100.0) fL MCH (25.0-35.0) pg MCHC (31.0-37.0) g/dL RDW (11.5-15.5) % Plt Count (150-450) k/uL Neutrophils % % Lymphocytes % % Monocytes % % Eosinophils % % Basophils % % Neutrophils # (1.3-7.7) k/uL Lymphocytes # (1.0-4.8) k/uL Monocytes # (0-1.0) k/uL Eosinophils # (0-0.7) k/uL Basophils # (0-0.2) k/uL PT 9.7 (9.0-12.0) sec INR 0.9 (<1.2) APTT 27.8 (22.0-30.0) sec Sodium (137-145) mmol/L Potassium (3.5-5.1) mmol/L Chloride (98-107) mmol/L Carbon Dioxide (22-30) mmol/L Anion Gap mmol/L BUN (7-17) mg/dL Creatinine (0.52-1.04) mg/dL Est GFR (CKD-EPI)AfAm (>60 ml/min/1.73 sqM) Est GFR (CKD-EPI)NonAf (>60 ml/min/1.73 sqM) Glucose (74-99) mg/dL Calcium (8.4-10.2) mg/dL Magnesium (1.6-2.3) mg/dL Total Bilirubin (0.2-1.3) mg/dL AST (14-36) U/L ALT (9-52) U/L Alkaline Phosphatase (38-126) U/L Troponin I <0.012 (0.000-0.034) ng/mL NT-Pro-B Natriuret Pep pg/mL Total Protein (6.3-8.2) g/dL Albumin (3.5-5.0) g/dL - EKG Data -: EKG Interpreted by Me (EKG shows sinus rhythm rate of 77, KY 138, QRS 122, QTc 461) - Radiology Data Radiology results: report reviewed (Chest x-ray and CT are negative for acute disease), image reviewed Disposition Clinical Impression: Atelectasis, Dyspnea, Chest pain Disposition: HOME SELF-CARE Condition: Good Instructions (If sedation given, give patient instructions): Bronchospasm (ED) Is patient prescribed a controlled substance at d/c from ED?: No Referrals: Leroy Leyva MD [Primary Care Provider] - 1-2 days
[2018-12-21] MEDS ORDERED: SODIUM CHLORIDE 0.9% 1,000 ML IV STA (21:10)
[2018-12-21] MEDS ORDERED: IPRATROPIUM-ALBUTEROL 3 ML NEB INHALATION STA (21:10)
[2018-12-21] MEDS ORDERED: ENALAPRILAT 1.25 MG/ML 1 ML VIAL IVP STA (21:11)
[2018-12-21 21:52] VITALS: RESP 16
[2018-12-21 21:59] LABS: Basophils % (A) 0 %; Eosinophils # (A) 0.2 k/uL (0-0.7); Eosinophils % (A) 2 %; HCT 43.2 % (34.0-46.0); HGB 14.2 gm/dL (11.4-16.0); Lymphocytes # (A) 1.8 k/uL (1.0-4.8); Lymphocytes % (A) 16 %; MCH 30.1 pg (25.0-35.0); MCHC 32.9 g/dL (31.0-37.0); MCV 91.6 fL (80.0-100.0); Mean Platelet Volume 7.1; Monocytes # (A) 0.4 k/uL (0-1.0); Monocytes % (A) 4 %; Neutrophils # (A) 8.5 k/uL (1.3-7.7); Neutrophils % (A) 76 %; Platelet Count 402 k/uL (150-450); RBC 4.72 m/uL (3.80-5.40); RDW 14.1 % (11.5-15.5); WBC 11.2 k/uL (3.8-10.6)
[2018-12-21 22:07] LABS: INR 0.9 (<1.2); Partial Thromboplastin Time 27.8 sec (22.0-30.0); Prothrombin Time 9.7 sec (9.0-12.0)
[2018-12-21 22:09] LABS: ALT 26 U/L (9-52); AST 22 U/L (14-36); Albumin 4.5 g/dL (3.5-5.0); Alkaline Phosphatase 125 U/L (38-126); Anion Gap 9 mmol/L; Blood Urea Nitrogen 16 mg/dL (7-17); Calcium 9.7 mg/dL (8.4-10.2); Carbon Dioxide 26 mmol/L (22-30); Chloride 104 mmol/L (98-107); Glucose 100 mg/dL (74-99); Magnesium 2.2 mg/dL (1.6-2.3); Potassium 4.5 mmol/L (3.5-5.1); Sodium 139 mmol/L (137-145); Total Bilirubin 0.7 mg/dL (0.2-1.3); Total Protein 7.8 g/dL (6.3-8.2)
--- NOTE | 2018-12-21 22:52 | XR ---
EXAM: XR Chest, 2 Views CLINICAL HISTORY: ITS.REASON XR Reason: difficulty breathing TECHNIQUE: Frontal and lateral views of the chest. COMPARISON: No relevant prior studies available. FINDINGS: Lungs: Bibasilar atelectasis. Low lung volumes. No consolidation. Pleural space: Unremarkable. No pneumothorax. Heart: Unremarkable. No cardiomegaly. Mediastinum: Unremarkable. Bones/joints: Unremarkable. IMPRESSION: No acute findings.
[2018-12-21] MEDS ORDERED: diphenhydrAMINE 50 MG/ML 1 ML VIAL IVP STA (23:02)
[2018-12-21] MEDS ORDERED: methylPREDNISolone SOD SUCCI 125 MG/2 ML VIAL IV STA (23:02)
[2018-12-21] MEDS ORDERED: FAMOTIDINE 20 MG/2 ML VIAL IV STA (23:02)
[2018-12-22] MEDS ORDERED: LABETALOL SYRINGE 5 MG/ML IVP STA (00:05)
--- NOTE | 2018-12-22 00:26 | CT ---
EXAM: CT Angiography Chest With Intravenous Contrast CLINICAL HISTORY: Cough. VANI. Evaluate for pulmonary embolism. TECHNIQUE: Axial computed tomographic angiography images of the chest with intravenous contrast using pulmonary embolism protocol. CTDI is 7.4 mGy and DLP is 305.7 mGy-cm. This CT exam was performed using one or more of the following dose reduction techniques: automated exposure control, adjustment of the mA and/or kV according to patient size, and/or use of iterative reconstruction technique. MIP reconstructed images were created and reviewed. COMPARISON: No relevant prior studies available. FINDINGS: Pulmonary arteries: There is no evidence for pulmonary embolism. Aorta: No acute findings. No thoracic aortic aneurysm. Lungs: Subsegmental linear changes are noted at the lung bases and inferior right middle lobe and lingular segments. There is some respiratory artifact, particularly at the lung bases which causes image degradation and limits detailed evaluation of distal subsegmental pulmonary artery branches. Pleural space: Unremarkable. No significant effusion. No pneumothorax. Heart: The cardiac chambers are borderline enlarged. Mediastinum: A hiatal hernia is identified. Bones/joints: No acute fracture. No dislocation. Soft tissues: Unremarkable. Lymph nodes: Nonspecific paratracheal lymph nodes are identified. Kidneys and ureters: Cystic changes are noted involving the bilateral renal jeanette and are presumed parapelvic renal cysts. Detail evaluation is limited due to phase of contrast imaging. Upper abdomen: There is elevation of the right hemidiaphragm. IMPRESSION: 1. There is no evidence for pulmonary embolism. 2. Subsegmental linear changes are noted at the lung bases and inferior right middle lobe and lingular segments. Primary consideration is subsegmental atelectasis. Infection is considered much less likely. No pleural effusion or pneumothorax.
[2018-12-22 00:41] VITALS: BP 161/91; PULSE 82; TEMP 98
== END 2018-12-22 00:41 | disposition home or self-care (01) ==
LOC: EC 19:36
DX: J98.11 Atelectasis (principal); R07.9 Chest pain, unspecified; I10 Essential (primary) hypertension; E07.9 Disorder of thyroid, unspecified; M19.90 Unspecified osteoarthritis, unspecified site; Z79.899 Other long term (current) drug therapy; Z88.1 Allergy status to other antibiotic agents; Z88.8 Allergy status to other drugs, medicaments and biological substances; Z91.041 Radiographic dye allergy status; Z91.013 Allergy to seafood; Z95.5 Presence of coronary angioplasty implant and graft; Z96.651 Presence of right artificial knee joint; Z85.828 Personal history of other malignant neoplasm of skin
CPT/HCPCS: 36415; 94640; 93005; 83880; 80053; 83735; 84484; 85025; 85610; 85730; 87040; 71046; 71275; 99285; 96374; 96375 ×4; 96361 ×3; J1200; J2930; Q9967

== ENCOUNTER 2019-06-18 17:11 | Emergency (ER) | payer MEDICARE ==
[2019-06-18] MEDS ORDERED: IPRATROPIUM-ALBUTEROL 3 ML NEB INHALATION STA (17:44)
[2019-06-18] MEDS ORDERED: SODIUM CHLORIDE 0.9% 1,000 ML IV STA (17:44)
--- NOTE | 2019-06-18 17:44 | ED ---
Chest Pain HPI - General Chief Complaint: Chest Pain Stated Complaint: SOB, Chest pain Time Seen by Provider: 06/18/19 17:18 Source: patient, RN notes reviewed, old records reviewed Mode of arrival: ambulatory Limitations: no limitations - History of Present Illness Initial Comments: This is a 73-year-old female the ER for evaluation she presents today for evaluation of chest pain weakness patient complains of cough sore throat with productive phlegm since Thursday. Patient standing current chest pain no fevers. Patient did cough up a significant amount of mucus today had trouble clearing her throat pain and color no blood. Again no chest pain she's had some chills sweating no fevers. No known sick contacts or travel history. MD Complaint: chest pain -: week(s) Onset: during rest, during exertion Pain Location: substernal Severity: mild Severity scale (1-10): 3 Quality: aching Consistency: intermittent Improves With: nothing Worsens With: nothing, inspiration Other Symptoms: cough Treatments Prior to Arrival: none - Related Data Home Medications Medication Instructions Recorded Confirmed Levothyroxine Sodium [Synthroid] 137 mcg PO DAILY 09/27/18 06/18/19 Metoprolol Succinate (ER) [Toprol 25 mg PO HS 09/27/18 06/18/19 XL] Hydrochlorothiazide [Hydrodiuril] 25 mg PO DAILY PRN 12/21/18 06/18/19 Lisinopril [Zestril] 20 mg PO HS 12/21/18 06/18/19 Amoxicillin 500 mg PO ONCE 06/18/19 06/18/19 Previous Rx's Medication Instructions Recorded Azithromycin [Zithromax Z-pack] 0 mg PO DIRECTED #1 pack 06/18/19 guaiFENesin [Mucinex] 600 mg PO Q12HR #10 tablet.er 06/18/19 Allergies Allergy/AdvReac Type Severity Reaction Status Date / Time bee venom protein (honey bee) Allergy Anaphylaxis Verified 06/18/19 18:00 ceftriaxone [From Rocephin] Allergy Itching Verified 06/18/19 18:00 Iodinated Contrast Media Allergy Rash/Hives Verified 06/18/19 18:00 [Iodinated Contrast- Oral and IV Dye] shellfish derived [Shrimp] Allergy Rash/Hives Verified 06/18/19 18:00 hydralazine AdvReac Nausea & Verified 06/18/19 18:00 Vomiting Review of Systems ROS Statement: Those systems with pertinent positive or pertinent negative responses have been documented in the HPI. ROS Other: All systems not noted in ROS Statement are negative. EKG Findings - EKG Comments: EKG Findings:: EKG shows sinus rhythm rate of 93, CO 134, QRS 122, QTc 450 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, past endometreosis, cysts on kidneys, basal cell skin cancer, shingles 2016 or 2017, "has a piece of wood stuck in lt thumb" History of Any Multi-Drug Resistant Organisms: MRSA Date of last positivie culture/infection: 2016 MDRO Source:: lt eye Past Surgical History: Heart Catheterization, Hernia Repair, Hysterectomy, Joint Replacement, Tonsillectomy Additional Past Surgical History / Comment(s): thyroid ablation, cataracts-melissa lens implants, rt knee replacement Past Anesthesia/Blood Transfusion Reactions: No Reported Reaction Additional Past Anesthesia/Blood Transfusion Reaction / Comment(s): CLAUSTERPHOBIA Past Psychological History: No Psychological Hx Reported Smoking Status: Never smoker Past Alcohol Use History: None Reported Past Drug Use History: None Reported - Past Family History Mother Additional Family Medical History / Comment(s): Mother from sepsis from rupture of colon cancer Father Additional Family Medical History / Comment(s): age 95- hx of parkinsons Brother(s) Additional Family Medical History / Comment(s): Patient has 1 sister and 1 brother that both have aortic aneurysm. Daughter(s) Additional Family Medical History / Comment(s): Patient has one daughter with chronic back problems. General Exam Limitations: no limitations General appearance: alert, in no apparent distress Head exam: Present: atraumatic, normocephalic, normal inspection Eye exam: Present: normal appearance, PERRL, EOMI. Absent: scleral icterus, conjunctival injection, periorbital swelling ENT exam: Present: normal exam, mucous membranes moist Neck exam: Present: normal inspection. Absent: tenderness, meningismus, lymphadenopathy Respiratory exam: Present: normal lung sounds bilaterally. Absent: respiratory distress, wheezes, rales, rhonchi, stridor Cardiovascular Exam: Present: normal rhythm, tachycardia, normal heart sounds. Absent: systolic murmur, diastolic murmur, rubs, gallop, clicks GI/Abdominal exam: Present: soft, normal bowel sounds. Absent: distended, tenderness, guarding, rebound, rigid Extremities exam: Present: normal inspection, full ROM, normal capillary refill. Absent: tenderness, pedal edema, joint swelling, calf tenderness Back exam: Present: normal inspection Neurological exam: Present: alert, oriented X3, CN II-XII intact Psychiatric exam: Present: normal affect, normal mood Skin exam: Present: warm, dry, intact, normal color. Absent: rash Course Vital Signs 06/18/19 06/18/19 06/18/19 17:16 17:24 18:02 Temperature 98.6 F Pulse Rate 109 H 91 Respiratory 16 16 20 Rate Blood Pressure 160/100 O2 Sat by Pulse 94 L Oximetry 06/18/19 06/18/19 06/18/19 18:10 19:01 19:11 Temperature 98.4 F Pulse Rate 96 92 Respiratory 18 18 Rate Blood Pressure 162/98 O2 Sat by Pulse 95 Oximetry - Reevaluation(s) Reevaluation #1: 06/18/19 19:27 Medical records reviewed Reevaluation #2: 06/18/19 19:27 Patient denies any significant current complaints of significant shortness of breath. Reevaluation #3: 06/18/19 19:27 encouraged to take blood pressure medication at home Chest Pain MDM - MDM 73 female with upper respiratory infection. X-rays negative. Labwork is normal. Patient's in no distress and can be discharged Disposition Clinical Impression: Upper respiratory infection, Bronchitis Disposition: HOME SELF-CARE Condition: Good Instructions (If sedation given, give patient instructions): Upper Respiratory Infection (ED) Prescriptions: guaiFENesin [Mucinex] 600 mg PO Q12HR #10 tablet.er Azithromycin [Zithromax Z-pack] 0 mg PO DIRECTED #1 pack Is patient prescribed a controlled substance at d/c from ED?: No Referrals: Leroy Leyva MD [Primary Care Provider] - 1-2 days
[2019-06-18 18:13] VITALS: RESP 18
[2019-06-18 18:13] LABS: Basophils # (A) 0.1 k/uL (0-0.2); Basophils % (A) 1 %; Eosinophils # (A) 0.2 k/uL (0-0.7); Eosinophils % (A) 3 %; HCT 45.3 % (34.0-46.0); HGB 15.2 gm/dL (11.4-16.0); Lymphocytes # (A) 1.8 k/uL (1.0-4.8); Lymphocytes % (A) 23 %; MCH 31.2 pg (25.0-35.0); MCHC 33.6 g/dL (31.0-37.0); MCV 92.7 fL (80.0-100.0); Mean Platelet Volume 6.1; Monocytes # (A) 0.5 k/uL (0-1.0); Monocytes % (A) 6 %; Neutrophils # (A) 4.9 k/uL (1.3-7.7); Neutrophils % (A) 63 %; Platelet Count 295 k/uL (150-450); RBC 4.89 m/uL (3.80-5.40); RDW 13.2 % (11.5-15.5); WBC 7.7 k/uL (3.8-10.6)
[2019-06-18 18:21] LABS: INR 0.8 (<1.2); Partial Thromboplastin Time 26.4 sec (22.0-30.0); Prothrombin Time 9.4 sec (9.0-12.0)
[2019-06-18 18:22] LABS: Albumin 4.4 g/dL (3.5-5.0); Calcium 9.5 mg/dL (8.4-10.2); Potassium 4.7 mmol/L (3.5-5.1); Total Bilirubin 0.4 mg/dL (0.2-1.3); Total Protein 7.6 g/dL (6.3-8.2)
--- NOTE | 2019-06-18 18:29 | XR ---
EXAMINATION TYPE: XR chest 2V DATE OF EXAM: 06/18/2019 COMPARISON: 12/21/2018 HISTORY: Difficulty breathing TECHNIQUE: Frontal and lateral views of the chest are obtained. FINDINGS: There is small linear density at the right lung base. There is mild thoracolumbar levoscol iosis. There is osteopenia. There is probably a hiatal hernia. IMPRESSION: Minimal subsegmental atelectasis right lung base. No heart failure seen. No adverse mccarthy ge compared to old exam.
[2019-06-18 19:02] VITALS: BP 162/98; PULSE 92
[2019-06-18 19:11] VITALS: TEMP 98.4
== END 2019-06-18 19:43 | disposition home or self-care (01) ==
LOC: EC 17:11
DX: J40 Bronchitis, not specified as acute or chronic (principal); J02.9 Acute pharyngitis, unspecified; E05.00 Thyrotoxicosis with diffuse goiter without thyrotoxic crisis or storm; E78.5 Hyperlipidemia, unspecified; I10 Essential (primary) hypertension; M19.90 Unspecified osteoarthritis, unspecified site; Z79.899 Other long term (current) drug therapy; Z79.890 Hormone replacement therapy; Z95.5 Presence of coronary angioplasty implant and graft; Z88.1 Allergy status to other antibiotic agents; Z91.030 Bee allergy status; Z91.041 Radiographic dye allergy status; Z91.013 Allergy to seafood; Z96.651 Presence of right artificial knee joint; Z98.41 Cataract extraction status, right eye; Z98.42 Cataract extraction status, left eye; Z96.1 Presence of intraocular lens; Z86.14 Personal history of Methicillin resistant Staphylococcus aureus infection; Z85.828 Personal history of other malignant neoplasm of skin
CPT/HCPCS: 36415; 71046; 80053; 82550; 83735; 83880; 84484; 85025; 85610; 85730; 87502; 93005; 94640; 96360; 99285

== ENCOUNTER 2020-01-02 00:20 | Emergency (ER) | payer MEDICARE ==
[2020-01-02] MEDS ORDERED: MORPHINE SULFATE 2 MG/ML SYRINGE IVP STA (00:34)
[2020-01-02] MEDS ORDERED: ONDANSETRON 4 MG/2 ML VIAL IVP STA (00:34)
[2020-01-02] MEDS ORDERED: SODIUM CHLORIDE 0.9% 1,000 ML IV STA (00:34)
[2020-01-02] MEDS ORDERED: methylPREDNISolone SOD SUCCI 125 MG/2 ML VIAL IV STA (00:36)
[2020-01-02] MEDS ORDERED: diphenhydrAMINE 50 MG/ML 1 ML VIAL IVP STA (00:36)
[2020-01-02] MEDS ORDERED: FAMOTIDINE 20 MG/2 ML VIAL IV STA (00:36)
--- NOTE | 2020-01-02 00:42 | ED ---
Abdominal Pain HPI - General Chief Complaint: Abdominal Pain Stated Complaint: Abdominal pain Time Seen by Provider: 01/02/20 00:27 Source: patient Mode of arrival: ambulatory Limitations: no limitations - History of Present Illness Initial Comments: 74-year-old female patient presents to the emergency department today for evaluation of midepigastric and right upper quadrant abdominal pain. Patient states that starting around 10 PM this evening she developed an intense pressure type pain to the right upper quadrant radiating through to her back. States that the pain became so intense she was very nauseated. She denies any vomiting. States she has had symptoms similar to this on and off for the last month. States last January she did have her gallbladder evaluated and was found to have a hyperactive gallbladder with an ejection fraction of 80%. She denies any fever or chills. States she has had some constipation. Denies any hematuria, dysuria, urinary frequency, urinary urgency. States she has had hysterectomy but no other abdominal surgeries. Denies taking any medication for her symptoms. Patient denies any recent rash, cough, shortness of breath, chest pain, numbness, tingling, dizziness, weakness, headache, visual changes, or any other complaints. - Related Data Home Medications Medication Instructions Recorded Confirmed Levothyroxine Sodium [Synthroid] 137 mcg PO DAILY 09/27/18 06/18/19 Metoprolol Succinate (ER) [Toprol 25 mg PO HS 09/27/18 06/18/19 XL] Hydrochlorothiazide [Hydrodiuril] 25 mg PO DAILY PRN 12/21/18 06/18/19 Lisinopril [Zestril] 20 mg PO HS 12/21/18 06/18/19 Amoxicillin 500 mg PO ONCE 06/18/19 06/18/19 Previous Rx's Medication Instructions Recorded Azithromycin [Zithromax Z-pack] 0 mg PO DIRECTED #1 pack 06/18/19 guaiFENesin [Mucinex] 600 mg PO Q12HR #10 tablet.er 06/18/19 Metoclopramide [Reglan] 10 mg PO Q8H PRN #30 tab 01/02/20 Allergies Allergy/AdvReac Type Severity Reaction Status Date / Time bee venom protein (honey bee) Allergy Anaphylaxis Verified 01/02/20 00:26 ceftriaxone [From Rocephin] Allergy Itching Verified 01/02/20 00:26 Iodinated Contrast Media Allergy Rash/Hives Verified 01/02/20 00:26 [Iodinated Contrast- Oral and IV Dye] shellfish derived [Shrimp] Allergy Rash/Hives Verified 01/02/20 00:26 hydralazine AdvReac Nausea & Verified 01/02/20 00:26 Vomiting Review of Systems ROS Statement: Those systems with pertinent positive or pertinent negative responses have been documented in the HPI. ROS Other: All systems not noted in ROS Statement are negative. 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, past endometreosis, cysts on kidneys, basal cell skin cancer, shingles 2016 or 2016, "has a piece of wood stuck in lt thumb" History of Any Multi-Drug Resistant Organisms: MRSA Date of last positivie culture/infection: 2015 MDRO Source:: lt eye Past Surgical History: Heart Catheterization, Hernia Repair, Hysterectomy, Joint Replacement, Tonsillectomy Additional Past Surgical History / Comment(s): thyroid ablation, cataracts-melissa lens implants, rt knee replacement Past Anesthesia/Blood Transfusion Reactions: No Reported Reaction Additional Past Anesthesia/Blood Transfusion Reaction / Comment(s): CLAUSTERPHOBIA Past Psychological History: No Psychological Hx Reported Smoking Status: Former smoker Past Alcohol Use History: None Reported Past Drug Use History: None Reported - Past Family History Mother Additional Family Medical History / Comment(s): Mother from sepsis from rupture of colon cancer Father Additional Family Medical History / Comment(s): age 95- hx of parkinsons Brother(s) Additional Family Medical History / Comment(s): Patient has 1 sister and 1 brother that both have aortic aneurysm. Daughter(s) Additional Family Medical History / Comment(s): Patient has one daughter with chronic back problems. General Exam Limitations: no limitations General appearance: alert, in no apparent distress, other (This is a well- developed, well-nourished elderly female patient in no acute distress. Vital signs upon presentation are temperature 98.3F, pulse 94, respirations 18, blood pressure 186/112, pulse ox 95% on room air.) ENT exam: Present: normal exam, normal oropharynx, mucous membranes moist Respiratory exam: Present: normal lung sounds bilaterally. Absent: respiratory distress, wheezes, rales, rhonchi, stridor Cardiovascular Exam: Present: regular rate, normal rhythm, normal heart sounds. Absent: systolic murmur, diastolic murmur, rubs, gallop, clicks GI/Abdominal exam: Present: soft, tenderness (Right upper quadrant, midepigastric tenderness. Positive Connell sign.), normal bowel sounds. Absent: distended, guarding, rebound, rigid Back exam: Present: normal inspection. Absent: CVA tenderness (R), CVA tenderness (L) Neurological exam: Present: alert, oriented X3, CN II-XII intact Psychiatric exam: Present: normal affect, normal mood Skin exam: Present: warm, dry, intact, normal color. Absent: rash Course Vital Signs 01/02/20 01/02/20 00:21 02:42 Temperature 98.3 F 98.2 F Pulse Rate 94 67 Respiratory 18 17 Rate Blood Pressure 186/112 149/87 O2 Sat by Pulse 95 96 Oximetry Medical Decision Making - Medical Decision Making 74-year-old female patient presents to the emergency department today for evaluation of abdominal pain and nausea. Patient is also reporting bloating in decreased appetite. Physical examination did reveal midepigastric and right upper quadrant tenderness. No CVA tenderness. Labs reviewed and are unremarkable. CT was obtained and did show chronic changes of the pancreas and the kidneys. No acute abdomen changes. I did discuss findings and results with the patient and she does report improvement of symptoms. We did offer admi ssion versus discharge to follow-up with her surgeon, she decided to be discharged. She'll be given up her prescription for Reglan. She is instructed to follow-up with her primary care physician in the morning and to call her surgeon for further evaluation. Return parameters discussed in detail. She verbalizes understanding and agrees with this plan. - Lab Data Result diagrams: 01/02/20 00:50 01/02/20 00:50 Lab Results 01/02/20 01/02/20 01/02/20 Range/Units 00:50 00:50 00:50 WBC 9.0 (3.8-10.6) k/uL RBC 4.67 (3.80-5.40) m/uL Hgb 14.0 (11.4-16.0) gm/dL Hct 44.6 (34.0-46.0) % MCV 95.6 (80.0-100.0) fL MCH 30.0 (25.0-35.0) pg MCHC 31.4 (31.0-37.0) g/dL RDW 14.1 (11.5-15.5) % Plt Count 329 (150-450) k/uL Neutrophils % 71 % Lymphocytes % 17 % Monocytes % 6 % Eosinophils % 4 % Basophils % 1 % Neutrophils # 6.4 (1.3-7.7) k/uL Lymphocytes # 1.6 (1.0-4.8) k/uL Monocytes # 0.5 (0-1.0) k/uL Eosinophils # 0.3 (0-0.7) k/uL Basophils # 0.1 (0-0.2) k/uL Sodium 136 L (137-145) mmol/L Potassium 4.6 (3.5-5.1) mmol/L Chloride 103 (98-107) mmol/L Carbon Dioxide 25 (22-30) mmol/L Anion Gap 8 mmol/L BUN 21 H (7-17) mg/dL Creatinine 1.02 (0.52-1.04) mg/dL Est GFR (CKD-EPI)AfAm 63 (>60 ml/min/1.73 sqM) Est GFR (CKD-EPI)NonAf 54 (>60 ml/min/1.73 sqM) Glucose 110 H (74-99) mg/dL Plasma Lactic Acid Jose 1.0 (0.7-2.0) mmol/L Calcium 9.3 (8.4-10.2) mg/dL Total Bilirubin 0.4 (0.2-1.3) mg/dL AST 27 (14-36) U/L ALT 14 (4-34) U/L Alkaline Phosphatase 100 (38-126) U/L Troponin I (0.000-0.034) ng/mL Total Protein 7.3 (6.3-8.2) g/dL Albumin 4.3 (3.5-5.0) g/dL Amylase 40 (30-110) U/L Lipase 254 (23-300) U/L Urine Color Urine Appearance (Clear) Urine pH (5.0-8.0) Ur Specific [place] (1.001-1.035) Urine Protein (Negative) Urine Glucose (UA) (Negative) Urine Ketones (Negative) Urine Blood (Negative) Urine Nitrite (Negative) Urine Bilirubin (Negative) Urine Urobilinogen (<2.0) mg/dL Ur Leukocyte Esterase (Negative) Urine RBC (0-5) /hpf Urine WBC (0-5) /hpf Ur Squamous Epith Cells (0-4) /hpf Urine Bacteria (None) /hpf Urine Mucus (None) /hpf 01/02/20 01/02/20 Range/Units 00:50 01:12 WBC (3.8-10.6) k/uL RBC (3.80-5.40) m/uL Hgb (11.4-16.0) gm/dL Hct (34.0-46.0) % MCV (80.0-100.0) fL MCH (25.0-35.0) pg MCHC (31.0-37.0) g/dL RDW (11.5-15.5) % Plt Count (150-450) k/uL Neutrophils % % Lymphocytes % % Monocytes % % Eosinophils % % Basophils % % Neutrophils # (1.3-7.7) k/uL Lymphocytes # (1.0-4.8) k/uL Monocytes # (0-1.0) k/uL Eosinophils # (0-0.7) k/uL Basophils # (0-0.2) k/uL Sodium (137-145) mmol/L Potassium (3.5-5.1) mmol/L Chloride (98-107) mmol/L Carbon Dioxide (22-30) mmol/L Anion Gap mmol/L BUN (7-17) mg/dL Creatinine (0.52-1.04) mg/dL Est GFR (CKD-EPI)AfAm (>60 ml/min/1.73 sqM) Est GFR (CKD-EPI)NonAf (>60 ml/min/1.73 sqM) Glucose (74-99) mg/dL Plasma Lactic Acid Jose (0.7-2.0) mmol/L Calcium (8.4-10.2) mg/dL Total Bilirubin (0.2-1.3) mg/dL AST (14-36) U/L ALT (4-34) U/L Alkaline Phosphatase (38-126) U/L Troponin I <0.012 (0.000-0.034) ng/mL Total Protein (6.3-8.2) g/dL Albumin (3.5-5.0) g/dL Amylase (30-110) U/L Lipase (23-300) U/L Urine Color Light Yellow Urine Appearance Clear (Clear) Urine pH 5.5 (5.0-8.0) Ur Specific [place] 1.007 (1.001-1.035) Urine Protein Negative (Negative) Urine Glucose (UA) Negative (Negative) Urine Ketones Negative (Negative) Urine Blood Small H (Negative) Urine Nitrite Negative (Negative) Urine Bilirubin Negative (Negative) Urine Urobilinogen <2.0 (<2.0) mg/dL Ur Leukocyte Esterase Small H (Negative) Urine RBC 1 (0-5) /hpf Urine WBC 5 (0-5) /hpf Ur Squamous Epith Cells <1 (0-4) /hpf Urine Bacteria Rare H (None) /hpf Urine Mucus Rare H (None) /hpf - EKG Data -: EKG Interpreted by Nc EKG Comments: EKG obtained at 0042 shows normal sinus rhythm with a right bundle branch block. Ventricular rate is 79, CO interval 142, QR denominational 124, QT 402, QTc 460. - Radiology Data Radiology results: report reviewed, image reviewed CT abdomen and pelvis with contrast was obtained. Report was reviewed in its entirety. Impression by Dr. Benedict shows mild atelectasis at the lung bases improved compared to old exam. Focal pancreatic atrophy with small pseudocyst formation and calcification consistent with chronic pancreatitis unchanged. Sigmoid diverticulosis without diverticulitis. Large renal parapelvic cyst. Unchanged. Disposition Clinical Impression: Abdominal pain, Bloating Disposition: HOME SELF-CARE Condition: Good Instructions (If sedation given, give patient instructions): Gas and Bloating (ED), Abdominal Pain (ED) Additional Instructions: Take medications as directed. Stick to clear liquid diet until follow-up. Call your physician and/or surgeon in the morning for further evaluation. Return to the emergency department immediately for any new, worsening, or concerning symptoms. Prescriptions: Metoclopramide [Reglan] 10 mg PO Q8H PRN #30 tab PRN Reason: Vomiting Is patient prescribed a controlled substance at d/c from ED?: No Referrals: Jamaica Palacio MD [Primary Care Provider] - 1-2 days Javier Wilson MD [Medical Doctor] - 1-2 days Time of Disposition: 02:21
[2020-01-02 01:09] LABS: Basophils # (A) 0.1 k/uL (0-0.2); Basophils % (A) 1 %; Eosinophils # (A) 0.3 k/uL (0-0.7); Eosinophils % (A) 4 %; HCT 44.6 % (34.0-46.0); Lymphocytes # (A) 1.6 k/uL (1.0-4.8); Lymphocytes % (A) 17 %; MCHC 31.4 g/dL (31.0-37.0); MCV 95.6 fL (80.0-100.0); Mean Platelet Volume 7.8; Monocytes # (A) 0.5 k/uL (0-1.0); Monocytes % (A) 6 %; Neutrophils # (A) 6.4 k/uL (1.3-7.7); Neutrophils % (A) 71 %; Platelet Count 329 k/uL (150-450); RBC 4.67 m/uL (3.80-5.40); RDW 14.1 % (11.5-15.5)
[2020-01-02 01:21] LABS: Albumin 4.3 g/dL (3.5-5.0); Calcium 9.3 mg/dL (8.4-10.2); Potassium 4.6 mmol/L (3.5-5.1); Total Bilirubin 0.4 mg/dL (0.2-1.3); Total Protein 7.3 g/dL (6.3-8.2)
[2020-01-02 01:43] LABS: Appearance,Urine Clear (Clear); Bacteria,Urine Rare /hpf; Bilirubin,Urine Negative (Negative); Blood,Urine Small (Negative); Color,Urine Light Yellow; Glucose,Urine (UA) Negative (Negative); Ketones,Urine Negative (Negative); Leukocyte Esterase,Urine Small (Negative); Mucus,Urine Rare /hpf; Nitrite,Urine Negative (Negative); PH, Urine 5.5 (5.0-8.0); Protein,Urine Negative (Negative); RBC,Urine 1 /hpf (0-5); Specific Gravity,Urine 1.007 (1.001-1.035); Squamous Epithelial Cell,Urine <1 /hpf (0-4); Urobilinogen,Urine <2.0 mg/dL (<2.0); WBC,Urine 5 /hpf (0-5)
--- NOTE | 2020-01-02 02:01 | CT ---
EXAMINATION TYPE: CT abdomen pelvis w con DATE OF EXAM: 01/02/2020 COMPARISON: 09/28/2018 HISTORY: RUQ pain CT DLP: 1118.6 mGycm Automated exposure control for dose reduction was used. CONTRAST: Performed with IV Contrast, patient injected with 80 mL of Isovue 300. There is some mild scarring and subsegmental atelectasis at the lung bases. There is no pleural effus ion. There is moderate size hiatal hernia. There is no pericardial effusion. There is no pleural effu lawrence. Liver shows no focal defect. Gallbladder appears normal. Spleen appears normal. There is no oren dence of pancreatic mass. There is thinning and fluid density in the body of the pancreas that probab ly relates to pseudocyst formation and chronic pancreatitis. There is a small 3 mm calcification as w ell. The bile ducts are not dilated. There is no adrenal mass. There are numerous large bilateral renal parapelvic cysts. Delayed images s how normal renal excretion. There is no retroperitoneal adenopathy. Abdominal aorta is atheromatous. Bladder distends smoothly. There is no inguinal hernia. There are multiple diverticula in the sigmoid colon. I see no sign of diverticulitis. There is no mesenteric edema. There is no ascites or free ai r. There is no sign of a bowel obstruction. Appendix not definitely seen. There is no sign of thicken ed appendix. There is mild thoracolumbar dextroscoliosis. There is mild thoracic levoscoliosis. There is multilevel spondylotic changes in the thoracic and lumbar spine. There is no compression fracture . The bony pelvis appears intact. IMPRESSION: There is some mild atelectasis at the lung bases improved compared to old exam. Focal pancreatic atro phy with small pseudocyst formation and calcification consistent with chronic pancreatitis unchanged. Sigmoid diverticulosis without diverticulitis. Large renal parapelvic cysts. Unchanged.
[2020-01-02 02:43] VITALS: BP 149/87; PULSE 67; RESP 17; TEMP 98.2
== END 2020-01-02 02:54 | disposition home or self-care (01) ==
LOC: EC 00:20
DX: R10.11 Right upper quadrant pain (principal); R11.0 Nausea; R14.0 Abdominal distension (gaseous); R63.0 Anorexia; R85.89 Other abnormal findings in specimens from digestive organs and abdominal cavity; I10 Essential (primary) hypertension; M19.90 Unspecified osteoarthritis, unspecified site; E07.9 Disorder of thyroid, unspecified; Z79.890 Hormone replacement therapy; Z79.899 Other long term (current) drug therapy; Z91.030 Bee allergy status; Z88.1 Allergy status to other antibiotic agents; Z91.041 Radiographic dye allergy status; Z91.013 Allergy to seafood; Z88.8 Allergy status to other drugs, medicaments and biological substances; Z85.828 Personal history of other malignant neoplasm of skin; Z96.651 Presence of right artificial knee joint; Z95.5 Presence of coronary angioplasty implant and graft; Z98.890 Other specified postprocedural states; Z87.891 Personal history of nicotine dependence
CPT/HCPCS: 36415; 93005; 80053; 82150; 83605; 83690; 84484; 85025; 81001; 74177; 99284; 96374; 96375 ×3; 96361 ×2; J1200; J2930; J2405; Q9967

== ENCOUNTER → 2020-02-29 | Outpatient (CLI) | payer MEDICARE ==
--- NOTE | 2020-02-29 12:47 | BD ---
EXAMINATION TYPE: Axial Bone Density DATE OF EXAM: 02/29/2020 COMPARISON: NONE CLINICAL HISTORY: 74 YR OLD FEMALE.....ICD-10 CODE: M81.0 OSTEOPOROSIS Height: 61.2 Weight: 180 FRAX RISK QUESTIONS: History of Fracture in Adulthood: YES Secondary Osteoporosis: YES 3. Menopause before 45: YES AT AGE 37 RISK FACTORS HISTORY OF: LT ELBOW FX OVER AGE OF 50YR OLD Family History of Osteoporosis: UNKNOWN Diet low in dairy products/other sources of calcium: YES, LACTOSE INTOLERANT Postmenopausal woman: YES AT AGE 37 YRS OLD, TOTAL HYST. Take estrogen and/or progesterone medications: YES, FOR OVER 30 YRS IN PAST, NONE NOW Lost more than 2 inches in height since high school: YES Hyperparathyroidism: NO Adrenal Insufficiency: NO MEDICATIONS: Thyroid Medications: GRAVES DISEASE, SYNTHROID FOR ABOUT 24 YRS Additional Medications: BP MEDS, MYLANTA, MULTIVITAMINS, CA AND VIT D RARELY Additional History: THYROID KILLED OFF IN PAST DUE TO GRAVES DISEASE, HYPERTENSION, LACTOSE INTOLERAN T, OSTEOARTHRITIS EXAM MEASUREMENTS: Bone mineral densitometry was performed using the Ey[employer]itness Surveillance System. Bone mineral density as measured about the Lumbar spine is: ----- L1-L4(G/cm2): 1.167 T Score Values are as follows: ----- L1: -1.8 ----- L2: -0.9 ----- L3: 0.9 ----- L4: 0.8 ----- L1-L4: -0.1 Bone mineral density FIRST BONE DENSITY STUDY AT [facility] Bone mineral density about the R hip (g/cm2): 0.847 Bone mineral density about the L hip (g/cm2): 0.774 T Score values are as follows: -----R Neck: -2.0 -----L Neck: -2.7 -----R Total: -1.3 -----L Total: -1.9 Bone mineral density FIRST BONE DENSITY STUDY AT [facility] FRAX%s: THERE IS A 25.9% CHANCE FOR A MAJOR OSTEOPOROTIC FX AND A 8.4% FOR HIP.....PROBABILITY FOR FX IN 10 YRS TIME IMPRESSION: Osteopenia NOTE: T-SCORE=SD OF THE YOUNG ADULT MEAN.
--- NOTE | 2020-03-01 09:16 | MM ---
Reason for exam: screening (asymptomatic). Last mammogram was performed 2 years and 11 months ago. History: Patient is postmenopausal and has history of other cancer at age 67. Took estrogen beginning at age 37. Physical Findings: A clinical breast exam by your physician is recommended on an annual basis and results should be correlated with mammographic findings. MG 3D Screening Mammo W/Cad Bilateral CC and MLO view(s) were taken. Prior study comparison: March 31, 2017, mammogram. April 04, 2014, mammogram. January 13, 2013, mammogram. There are scattered fibroglandular densities. No significant changes when compared with prior studies. ASSESSMENT: Benign, BI-RAD 2 RECOMMENDATION: Routine screening mammogram of both breasts in 1 year.
== END | disposition home or self-care (01) ==
LOC: RADMAMWWP 09:52
PROVIDERS: ATTEND Internal Medicine
DX: Z12.31 Encounter for screening mammogram for malignant neoplasm of breast (principal); M81.0 Age-related osteoporosis without current pathological fracture
CPT/HCPCS: 77063; 77067; 77080

== ENCOUNTER 2021-12-14 13:54 | Emergency (ER) | payer MEDICARE ==
--- NOTE | 2021-12-14 15:05 | ED ---
General Adult HPI - General Chief complaint: Upper Respiratory Infection Stated complaint: Cough,Weakness Time Seen by Provider: 12/14/21 14:20 Source: patient, RN notes reviewed Mode of arrival: ambulatory Limitations: no limitations - History of Present Illness Initial comments: Patient is a pleasant 76-year-old female presenting to the emergency Department with cough. Onset of symptoms was 3-4 days ago. Patient has productive yellow sputum. Patient has family member with similar symptoms diagnosed with pneumonia. No dyspnea. Patient does have chest and nasal congestion. No fever. - Related Data Home Medications Medication Instructions Recorded Confirmed Levothyroxine Sodium [Synthroid] 137 mcg PO DAILY 09/27/18 06/18/19 Metoprolol Succinate (ER) [Toprol 25 mg PO HS 09/27/18 06/18/19 XL] hydroCHLOROthiazide [Hydrodiuril] 25 mg PO DAILY PRN 12/21/18 06/18/19 lisinopriL [Zestril] 20 mg PO HS 12/21/18 06/18/19 Amoxicillin 500 mg PO ONCE 06/18/19 06/18/19 Previous Rx's Medication Instructions Recorded Azithromycin [Zithromax Z-pack (6 0 mg PO DIRECTED #1 pack 06/18/19 tabs)] guaiFENesin [Mucinex] 600 mg PO Q12HR #10 tablet.er 06/18/19 Metoclopramide [Reglan] 10 mg PO Q8H PRN #30 tab 01/02/20 Azithromycin [Zithromax Z-pack (6 250 mg PO DIRECTED #6 tab 12/14/21 tabs)] Allergies Allergy/AdvReac Type Severity Reaction Status Date / Time bee venom protein (honey bee) Allergy Anaphylaxis Verified 12/14/21 14:07 ceftriaxone [From Rocephin] Allergy Itching Verified 12/14/21 14:07 Iodinated Contrast Media Allergy Rash/Hives Verified 12/14/21 14:07 [Iodinated Contrast- Oral and IV Dye] shellfish derived [Shrimp] Allergy Rash/Hives Verified 12/14/21 14:07 hydralazine AdvReac Nausea & Verified 12/14/21 14:07 Vomiting Review of Systems ROS Statement: Those systems with pertinent positive or pertinent negative responses have been documented in the HPI. ROS Other: All systems not noted in ROS Statement are negative. Constitutional: Denies: fever, chills Eyes: Denies: eye pain ENT: Reports: congestion. Denies: ear pain Respiratory: Reports: cough. 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, past endometreosis, cysts on kidneys, basal cell skin cancer, shingles 2016 or 2017, "has a piece of wood stuck in lt thumb" History of Any Multi-Drug Resistant Organisms: MRSA Date of last positivie culture/infection: 2015 MDRO Source:: lt eye Past Surgical History: Heart Catheterization, Hernia Repair, Hysterectomy, Joint Replacement, Tonsillectomy Additional Past Surgical History / Comment(s): thyroid ablation, cataracts-melissa lens implants, rt knee replacement Past Anesthesia/Blood Transfusion Reactions: No Reported Reaction Additional Past Anesthesia/Blood Transfusion Reaction / Comment(s): CLAUSTERPHOBIA Past Psychological History: No Psychological Hx Reported Smoking Status: Never smoker Past Alcohol Use History: None Reported Past Drug Use History: None Reported - Past Family History Mother Additional Family Medical History / Comment(s): Mother from sepsis from rupture of colon cancer Father Additional Family Medical History / Comment(s): age 95- hx of parkinsons Brother(s) Additional Family Medical History / Comment(s): Patient has 1 sister and 1 brother that both have aortic aneurysm. Daughter(s) Additional Family Medical History / Comment(s): Patient has one daughter with chronic back problems. General Exam Limitations: no limitations General appearance: alert, in no apparent distress Head exam: Present: normocephalic Eye exam: Present: normal appearance, PERRL ENT exam: Present: normal oropharynx Neck exam: Present: normal inspection Respiratory exam: Present: normal lung sounds bilaterally. Absent: respiratory distress, wheezes, rales Cardiovascular Exam: Present: regular rate, normal rhythm GI/Abdominal exam: Present: soft. Absent: tenderness Extremities exam: Present: normal inspection. Absent: pedal edema, calf tenderness Neurological exam: Present: alert Psychiatric exam: Present: normal affect, normal mood Skin exam: Present: normal color Course Vital Signs 12/14/21 14:05 Temperature 98.6 F Pulse Rate 74 Respiratory 20 Rate Blood Pressure 170/98 O2 Sat by Pulse 95 Oximetry Medical Decision Making - Medical Decision Making Patient reevaluated and resting comfortably in bed. Patient updated on results and need for follow-up. Patient requests a Z-Edgar. Patient states her daughter has pneumonia and normally she gets this when she is feeling sick. Patient advised that. I does not need this right now however prescription will be provided if symptoms worsen in the near future. - Lab Data Lab Results 12/14/21 12/14/21 Range/Units 15:20 15:20 Coronavirus (PCR) Not Detected (Not Detectd) Influenza Type A RNA Not Detected (Not Detectd) Influenza Type B (PCR) Not Detected (Not Detectd) - Radiology Data Radiology results: image reviewed (Chest x-ray shows mild cardiac megaly. Hiatial hernia. No change from prior.) Disposition Clinical Impression: Bronchitis Disposition: HOME SELF-CARE Condition: Stable Instructions (If sedation given, give patient instructions): Acute Bronchitis (ED) Additional Instructions: Prescription sent to pharmacy if symptoms do not improve or worsen. Please do follow-up to primary care physician in the next day or 2 for recheck. Return for difficulty breathing, fevers, worsening or changing symptoms or other concerns. Prescriptions: Azithromycin [Zithromax Z-pack (6 tabs)] 250 mg PO DIRECTED #6 tab Is patient prescribed a controlled substance at d/c from ED?: No Referrals: Leroy Leyva MD [Primary Care Provider] - 1-2 days Time of Disposition: 16:18
--- NOTE | 2021-12-14 15:14 | XR ---
EXAMINATION TYPE: XR chest 2V DATE OF EXAM: 12/14/2021 COMPARISON: 06/18/2019 HISTORY: Cough TECHNIQUE: Frontal and lateral views of the chest are obtained. FINDINGS: There is no focal air space opacity, pleural effusion, or pneumothorax seen. There is ecta mahsa of the thoracic aorta. There is a small to moderate hiatal hernia. The heart is mildly prominent in size and there is no interstitial edema. The osseous structures are intact IMPRESSION: Small to moderate hiatal hernia mild cardiomegaly but no overt CHF.. No interval change s evon the prior study.
[2021-12-14 17:07] VITALS: BP 162/91; PULSE 72; RESP 18; TEMP 98.5
== END 2021-12-14 17:00 | disposition home or self-care (01) ==
LOC: EC 13:54
DX: J40 Bronchitis, not specified as acute or chronic (principal); I10 Essential (primary) hypertension; E07.9 Disorder of thyroid, unspecified; Z79.1 Long term (current) use of non-steroidal anti-inflammatories (NSAID); Z91.040 Latex allergy status; Z20.822 Contact with and (suspected) exposure to COVID-19; Z91.030 Bee allergy status; Z88.8 Allergy status to other drugs, medicaments and biological substances; Z88.1 Allergy status to other antibiotic agents
CPT/HCPCS: 71046; 87502; 87635; 99285

== ENCOUNTER → 2023-07-22 | Outpatient (CLI) | payer MEDICARE | END | disposition home or self-care (01) | LOC: LABWHC1 11:56 | PROVIDERS: ATTEND Internal Medicine Endocrinology, Diabetes & Metabolism | DX: E03.8 Other specified hypothyroidism (principal) | CPT/HCPCS: 36415; 82024; 84295; 84443 ==